=== PATIENT | female | born 1955 | race Caucasian/White ===

== ENCOUNTER → 2017-07-11 | Day surgery (SDC) | payer OTHER ==
[~2017-07-11] VITALS: Ht 170.2 cm; Wt 61.9 kg
[~2017-07-11] MED LIST: ACETAMINOPHEN 500 MG CPLT PO PRN; ATROPINE SULFATE 1% OPHT SOLN 2 ML BTL ONE; BALANCED SALT SOLN OPHT IRRIG 15 ML BTL ONE; CHLORHEXIDINE GLUCONATE 2 % 1 PACK (2 CLOTHS) TOPICAL PRN; COQ-50CA2 PO; CYCLOPENTOLATE HCL 1% OPHT SOLN 2 ML BTL ONE; CYMB30CA PO; CYMB60CA PO; DEXAMETHASONE SOD PHOS 4 MG/ML VIAL IV ONE; DEXAMETHASONE SOD PHOS 4 MG/ML VIAL ONE; DO NOT ADM ANY ANTICOAGULANT DRUGS PRN; DOCU1CAP66 PO; EPINEPHrine HCL (1:1000) 1 MG/ML VIAL ONE; ESOM1CAP16 PO; FISH1000; FLUO40CA PO; GABA800T PO; INSULIN HUMAN REGULAR 1,000 UNITS/10 ML VIAL SQ PRN; LACTATED RINGER'S 1000 ML INJ 1,000 ML IV ONE; LACTATED RINGER'S 1000 ML IV PRN; LEFL1TAB3 PO; LIDOCAINE HCL 1% PF 5 ML SYRINGE OTHER ONE; MAXI1000 PO; METOPROLOL TARTRATE 25 MG TAB PO PRN; MULTTAB67 PO; OMEG100046 PO; ONDANSETRON HCL 4 MG/2 ML VIAL IV ONE; PHENYLEPH/NS 1000 MCG/10 ML SYR IV ONE; PHENYLEPHRINE HCL 2.5% OPTH SOLN 2 ML BTL ONE; POVIDONE IODINE 5% (ANTISEPSIS KIT) 4 APPLICATIONS EACH NARE PRN; PRED5TAB PO; PROPOFOL 200 MG/20 ML AMP IV ONE; QUET1TAB7 PO; SODIUM CHLORID 0.9% 500 ML IV PRN; STERILE WATER FOR INJECTION 20 ML VIAL ONE; TOBRAMYCIN/DEXAMETHASONE OPTH OINT 3.5 GM TUBE ONE; TRAZ100T10 PO; TRIAMCINOLONE ACETONIDE/PF 40 MG/ML OPTH VIAL ONE; TROPICAMIDE 1% OPHT SOLN 15 ML BTL ONE; TYLETAB34 PO; VITA1000 PO; VITA500T83 PO; VITACAP7 PO; ceFAZolin INJ 1,000 MG VIAL ONE; ePHEDrine/NS 25 MG/5 ML SYRINGE IV ONE; oxyCODONE/ACETAMINOPHEN 5 MG/325 MG TAB PO PRN
[2017-07-11] MEDS: ATROPINE SULFATE 1% OPHT SOLN 5 ML BTL RIGHT EYE SCH ×3 (13:25→13:55)
[2017-07-11] MEDS: PHENYLEPHRINE HCL 2.5% OPTH SOLN 2 ML BTL RIGHT EYE SCH ×3 (13:25→13:55)
[2017-07-11] MEDS: CYCLOPENTOLATE HCL 1% OPHT SOLN 2 ML BTL RIGHT EYE SCH ×3 (13:25→13:55)
[2017-07-11] MEDS: TROPICAMIDE 1% OPHT SOLN 15 ML BTL RIGHT EYE SCH ×3 (13:25→13:55)
[2017-07-11 14:00] LABS: AUTOMATED NEUTROPHIL # 3.8 TH/MM3 (1.8-7.7); BASOPHIL % 0.8 % (0.0-2.0); EOSINOPHIL # 0.1 TH/MM3 (0-0.4); EOSINOPHIL % 1.8 % (0.0-4.0); HEMATOCRIT 37.7 % (35.0-46.0); HEMOGLOBIN 13.1 GM/DL (11.6-15.3); LYMPH % 15.3 % (9.0-44.0); LYMPHOCYTE # 0.9 TH/MM3 (1.0-4.8); MEAN CELL VOLUME 89.4 FL (80.0-100.0); MEAN CORPUSCULAR HGB CONC 34.6 % (32.0-36.0); MEAN PLATELET VOLUME 7.2 FL (7.0-11.0); MONO % 16.3 % (0.0-8.0); MONOCYTE # 0.9 TH/MM3 (0-0.9); NEUT % 65.8 % (16.0-70.0); PLATELET COUNT 269 TH/MM3 (150-450); RED BLOOD COUNT 4.22 MIL/MM3 (4.00-5.30); RED CELL DISTRIBUTION WIDTH 13.3 % (11.6-17.2); WHITE BLOOD COUNT 5.7 TH/MM3 (4.0-11.0)
[2017-07-11 16:44] VITALS: BP 123/82; PULSE 73; RESP 16; TEMP 97.5; O2SAT 97
--- NOTE | 2017-07-12 12:13 | MP ---
cc: BUBBA CLAYTON M.D. DATE OF SURGERY 07/11/2017 PREOPERATIVE DIAGNOSIS Rhegmatogenous retinal detachment right eye. POSTOPERATIVE DIAGNOSIS Rhegmatogenous retinal detachment right eye. PROCEDURE A trans pars plana vitrectomy with membranectomy-fluid exchange, endolaser photocoagulation, right eye. SURGEON Dr. Bubba Clayton ANESTHESIA General laryngeal mask anesthesia. INDICATIONS FOR PROCEDURE Ms. Alexis is a 62-year-old woman who states that she started having problems with her temporal visual field in her right eye sometime in April. When she presented she had a nasal retinal detachment from approximately 12:30 o'clock down and around to 6:30 o'clock. The macula was attached. The two tears responsible were at approximately 2 o'clock in the equatorial region. It was recommended that she undergo a vitrectomy to repair the retinal detachment with gas tamponade and laser retinopexy. She wished to proceed and informed consent was obtained. No guarantee was made as to visual outcome. She also was made aware that the procedure to fix the retinal detachment often accelerating cataract development. The risks and benefits of surgery were discussed, informed consent was obtained. No guarantee was made as to visual outcome. PROCEDURE She was brought to [facility] operating room #1 and placed on the eye gurney and appropriate anesthesia monitoring devices were applied. She was placed under general anesthesia using a laryngeal mask. The right eye was identified as the operative site and prepped and draped in the usual sterile fashion. A lid speculum was placed. At this time an appropriate time-out was called with the OR personnel and the surgeon agreeing to the procedure and surgical site. The microscope was brought around and adjusted using the Jermaine 23-gauge vitrectomy system. The trocar cannulas were placed 4 mm posterior to the limbus with the first one being placed at approximately 8:45 o'clock and verified to be in the posterior chamber. Two additional cannulas placed at 10 and 2 o'clock. A small amount of Kenalog was injected in the eye to help with visualization of the vitreous. Infusion cannula was attached onto the temporal cannula and turned on after being verified in the posterior chamber. The eye was entered with the endoilluminator light pipe and vitrectomy cutter and a core and peripheral vitrectomy were done. The two adjacent breaks at about 2 o'clock had the flap amputated during the procedure and scleral depression was used to remove the more peripheral vitreous using the BIOM wide angle viewing system. Perfluoron was used to flatten the retina and laser was done around the retinal breaks and inferior peripheral retina. The Perfluoron was exchanged for air and then the air exchanged for a 15% mixture of C3F8 gas. The superonasal sclerotomy was closed with a single interrupted 7-0 Vicryl while the other two sclerotomies when the cannulas were removed were airtight leaving the eye with good pressure and no visible air leaks. A total of 965 laser spots were placed with a power that varied between 250 and 300 milliwatts and 0.1-second exposure. Atropine drops were placed on the cornea. The patient had the lid speculum removed and was undraped. Subconjunctival injections of Ancef 125 mg in 0.5 cc and Decadron 2 mg in 0.5 cc were given before the lid speculum was removed. Once the patient was undraped, TobraDex ointment was placed on the cornea and the right eye was patched and shielded. The patient had the laryngeal mass removed in the room and was returned to Recovery laying on her right side. When awake and cooperative she will be asked to begin face-down positioning. MD BERTA Funk/TAHIR /3:38 PM /11:40 AM
--- NOTE | 2017-07-13 01:43 | EKG ---
Date Performed: 07/11/2017 Time Performed: 12:44:52 PTAGE: 62 years EKG: ECTOPIC ATRIAL RHYTHM INCOMPLETE RIGHT BUNDLE BRANCH BLOCK ABNORMAL RHYTHM ECG NO PREVIOUS TRACING DOCTOR: Fay Swift Interpretating Date/Time 07/13/2017 01:42:47
== END | disposition home or self-care (01) ==
LOC: HSDC 12:01
PROVIDERS: ATTEND Ophthalmology
DX: H33.021 Retinal detachment with multiple breaks, right eye (principal); R94.31 Abnormal electrocardiogram [ECG] [EKG]
CPT/HCPCS: 00145; 67108; 85025; 93005; J0171; J0690; J1100; J2370; J2405; J3010; J3300; J7120

== ENCOUNTER → 2017-09-19 | Day surgery (SDC) | payer OTHER ==
[~2017-09-19] VITALS: Ht 170.2 cm; Wt 68.1 kg
[~2017-09-19] MED LIST changes: -BALANCED SALT SOLN OPHT IRRIG 15 ML BTL ONE; +BUPIVACAINE HCL PF 0.75% 10 ML VIAL ONE; -CYCLOPENTOLATE HCL 1% OPHT SOLN 2 ML BTL ONE; -CYMB60CA PO; -FISH1000; +HUMIKIT2 SQ; -LACTATED RINGER'S 1000 ML INJ 1,000 ML IV ONE; -MAXI1000 PO; +MULTTAB PO; -PHENYLEPH/NS 1000 MCG/10 ML SYR IV ONE; -PHENYLEPHRINE HCL 2.5% OPTH SOLN 2 ML BTL ONE; -STERILE WATER FOR INJECTION 20 ML VIAL ONE; +TOBRAMYCIN 0.3%/DEXAMETHASONE 0.1% OPHT SUSP 5 ML BTL ONE; -TOBRAMYCIN/DEXAMETHASONE OPTH OINT 3.5 GM TUBE ONE; -TROPICAMIDE 1% OPHT SOLN 15 ML BTL ONE
[2017-09-19 09:38] LABS: AUTOMATED NEUTROPHIL # 4.8 TH/MM3 (1.8-7.7); BASOPHIL % 0.5 % (0.0-2.0); EOSINOPHIL # 0.1 TH/MM3 (0-0.4); EOSINOPHIL % 1.5 % (0.0-4.0); HEMATOCRIT 41.6 % (35.0-46.0); HEMOGLOBIN 14.4 GM/DL (11.6-15.3); LYMPH % 15.9 % (9.0-44.0); LYMPHOCYTE # 1.1 TH/MM3 (1.0-4.8); MEAN CELL VOLUME 90.4 FL (80.0-100.0); MEAN CORPUSCULAR HEMOGLOBIN 31.2 PG (27.0-34.0); MEAN CORPUSCULAR HGB CONC 34.5 % (32.0-36.0); MEAN PLATELET VOLUME 7.2 FL (7.0-11.0); MONO % 9.7 % (0.0-8.0); MONOCYTE # 0.6 TH/MM3 (0-0.9); NEUT % 72.4 % (16.0-70.0); PLATELET COUNT 229 TH/MM3 (150-450); RED BLOOD COUNT 4.61 MIL/MM3 (4.00-5.30); RED CELL DISTRIBUTION WIDTH 13.5 % (11.6-17.2); WHITE BLOOD COUNT 6.6 TH/MM3 (4.0-11.0)
[2017-09-19] MEDS: PHENYLEPHRINE HCL 2.5% OPTH SOLN 2 ML BTL RIGHT EYE SCH ×4 (09:45→10:40)
[2017-09-19] MEDS: TROPICAMIDE 1% OPHT SOLN 15 ML BTL RIGHT EYE SCH ×4 (09:45→10:40)
[2017-09-19] MEDS: ATROPINE SULFATE 1% OPHT SOLN 5 ML BTL RIGHT EYE SCH ×4 (09:45→10:40)
[2017-09-19] MEDS: CYCLOPENTOLATE HCL 1% OPHT SOLN 2 ML BTL RIGHT EYE SCH ×4 (09:45→10:40)
--- NOTE | 2017-09-19 15:10 | MP ---
cc: Fior Lozano MD DATE OF OPERATION: 09/19/2017 DATE OF PROCEDURE: 09/19/2017. 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 PROCEDURE PERFORMED: Trans pars plana vitrectomy, membranectomy, scleral buckle procedure, laser photocoagulation and installation of 1000 centistoke silicone oil, right eye. SURGEON: Fior Lozano MD ANESTHESIA: General laryngeal mask anesthesia. INDICATIONS FOR PROCEDURE: Ms. Alexis is a 62-year-old lady who developed a complicated retinal detachment after initial primary reattachment with vitrectomy. She also required cataract surgery prior to proceeding with her second retinal procedure. She was found to have a near-total rhegmatogenous retinal detachment with PVR. She was told that she would need another vitrectomy, probably membrane peeling, scleral buckle and possible long-term tamponade with silicone oil. She understood, the risks and benefits were discussed and she wished to proceed. She was brought to [facility] operating room #1 on the eye stretcher. Appropriate anesthesia monitoring devices were applied and she was placed under general anesthesia using a laryngeal mask. The right eye was identified as the operative site and prepped and draped in the usual sterile fashion. A lid speculum was placed. At this point, an appropriate timeout was called with the staff agreeing to the proposed procedure and surgical site. A peritomy along the limbus was done 360 degrees with a radial relaxing incision at 3 o'clock. All four quadrants were opened with blunt dissection using the Nazia scissors. The 4 recti muscles were hooked on muscle hooks and transferred onto 4-0 black silk ties. 5-0 Dacron sutures were placed mattress style in between the recti muscles in all 4 quadrants and then a 41 band was threaded through the mattress sutures and under the muscles and secured with a 70 sleeve in the inferotemporal quadrant. Next, a 23-gauge three-port vitrectomy was carried out using both flat lens and the BIOM wide angle viewing for vitrectomy and membrane peeling. The vitreous base was cropped close all of the 360 degrees and the right posterior retina was stabilized with Perfluoron. Once the vitrectomy had been carried out and some membranes removed anteriorly, the retina was flattened under the Perfluoron and then laser photocoagulation using both the endolaser probe and the laser indirect ophthalmoscope were used with the power that varied between 250 and 400 milliwatts and 0.1 second exposure. A total of 1838 spots were placed in this fashion 360 degrees. Next, the buckle was snugged down and secured with the mattress sutures in all 4 quadrants, creating a good buckle effect. The Perfluoron was removed and exchanged for air after which the eye was filled with 1000 centistoke silicone oil. The trocar cannulas which had been placed 3.5 mm posterior to the limbus were removed and the sites closed with interrupted 7-0 Vicryl. The orbit was irrigated with a mixture 0.75% Marcaine without epinephrine and tobramycin after which the recti muscle ties were removed and the conjunctiva was closed with 3 interrupted 6-0 chromic sutures along the radial relaxing incision at 3 o'clock. Subconjunctival actions of Ancef 125 mg in 0.5 mL and Decadron 2 mg in 0.5 mL were given at separate sites. The lid speculum was removed and the patient was undraped. TobraDex ointment were placed on the cornea and then the right eye was patched and shielded. The patient had laryngeal mask removed in the room and was returned to recovery in a sitting up position. MD BERTA Funk/STEFANO , 02:41 PM , 03:09 PM
[2017-09-19 15:37] VITALS: BP 128/74; PULSE 99; RESP 20; TEMP 98; O2SAT 95
== END | disposition home or self-care (01) ==
LOC: HSDC 08:38
PROVIDERS: ATTEND Ophthalmology
DX: H33.001 Unspecified retinal detachment with retinal break, right eye (principal); H33.41 Traction detachment of retina, right eye
CPT/HCPCS: 00145; 67108; 85025; C1814; J0171; J0690; J1100; J3010; J7120; J2405; J3300